=== PATIENT | female | born 1960 | race Two or more races ===

== ENCOUNTER 2017-05-23 22:03 | Inpatient (IN) | payer OTHER ==
[2017-05-23] MEDS ORDERED: ONDANSETRON 4 MG/2 ML VIAL IVP ONE (22:33)
[2017-05-23] MEDS ORDERED: KETOROLAC 30 MG/1 ML SDV IVP ONE (22:33)
[2017-05-23] MEDS ORDERED: NS 1,000 ML IV ONE (22:33)
--- NOTE | 2017-05-23 22:36 | EDPHY ---
H & P Stated Complaint: n/v, abd pain - Personal History LMP (Females 10-55): Hysterectomy Current Tetanus/Diphtheria Vaccine: Yes Current Tetanus Diphtheria and Acellular Pertussis (TDAP): Yes - Medical/Surgical History Hx Asthma: No Hx Chronic Respiratory Disease: No Hx Diabetes: No Hx Cardiac Disease: No Hx Renal Disease: No Hx Cirrhosis: No Hx Alcoholism: No Hx HIV/AIDS: No Hx Splenectomy or Spleen Trauma: No Other PMH: hysterectomy, ovarian CA with removal, double mastectomy - Social History Smoking Status: Never smoked Time Seen by Provider: 05/23/17 22:27 HPI/ROS: CHIEF COMPLAINT: Abdominal pain, nausea, vomiting x 24 hours HISTORY OF PRESENT ILLNESS: 56-year-old female in the ER via private vehicle with her son. The patient is visiting from [facility]. She describes 24 hours of periumbilical abdominal pain, nausea, vomiting. No bowel movement in over 24 hours. Not passing flatness. Normal urinary habits. No history of similar. She has history of ovarian cancer with total hysterectomy, appendectomy and bilateral mastectomy performed several years ago. REVIEW OF SYSTEMS: A ten point review of systems was performed and is negative with the exception of the items mentioned in the HPI PAST MEDICAL & SURGICAL HISTORY: Total hysterectomy. Appendectomy. Bilateral mastectomy SOCIAL HISTORY: visiting from [facility] PHYSICAL EXAM (Prior to examination, patient consented to physical exam, hands were washed and my usual and customary physical exam procedures followed) 1) GENERAL: Well-developed, well-nourished, alert and oriented. Appears uncomfortable 2) HEAD: Normocephalic, atraumatic 3) HEENT: Pupils equal, round, reactive to light bilaterally. Sclera anicteric. Nasopharynx, oropharynx, clear, no lesions. Dry mucous membranes 4) NECK: Full range of motion, no meningeal signs. 5) LUNGS: Clear auscultation bilaterally, no wheezes, no rhonchi, no retractions. 6) HEART: Regular rate and rhythm, no murmur, no heave, no gallop. 7) ABDOMEN: Guarding abdomen, tender to palpation periumbilical region. , negative Ramos's, negative peritoneal sign, 8) MUSCULOSKELETAL: Moving all extremities, no focal areas of tenderness, no obvious trauma. No peripheral edema or discoloration. 9) BACK: No CVA tenderness, no midline vertebral tenderness, no fluctuance, no step-off, no obvious trauma, no visual or palpable abnormality. 10) SKIN: No rash, no petechiae. 11) Psychiatric: Patient is oriented X 3, there is no agitation. DIFFERENTIAL DIAGNOSIS: in no particular order including but not limited to bowel obstruction, gastroenteritis, cholecystitis, mesenteric ischemia (Lo Osman) Constitutional: Initial Vital Signs Temperature (C) 37.3 C 05/23/17 22:17 Heart Rate 84 05/23/17 22:17 Respiratory Rate 16 05/23/17 22:17 Blood Pressure 121/90 H 05/23/17 22:17 O2 Sat (%) 96 05/23/17 22:17 O2 Delivery Mode Room Air Allergies/Adverse Reactions: No Known Allergies Allergy (Unverified 05/23/17 22:16) Home Medications: Medication Instructions Recorded Quetiapine Fumarate 05/23/17 Medical Decision Making - Diagnostics Imaging: Discussed imaging studies w/ sheet metal work furnace installer Radiologist - Diagnostics Imaging Results: Imaging Impressions Abdomen CT 05/23/17 23:34 Impression: 1. Findings consistent with small bowel obstruction with transition zone identified in the distal ileum. 2. See above report for additional findings. Results called and discussed with Lo Osman on 05/24/2017 at 0:33 ED Course/Re-evaluation: 12:34 a.m.: Discussed the imaging results with Dr. Harris and with the patient. She is feeling improvement in symptoms at this time. Plan will be admission to surgery for small-bowel obstruction. 1257 am: Phone consultation with Dr. Jefry Villela will admit patient. NG tube will be placed. (Lo Osman) PHYSICIAN DOCUMENTATION: The patient was evaluated and managed by the Physician Metal Buffer. My co- signature indicates that I have reviewed this chart and I agree with the findings and plan of care as documented. I am the secondary supervising physician. (Carolyn Harris) - Data Points Laboratory Results: Laboratory Results 05/23/17 22:40 05/23/17 22:40 05/23/17 05/23/17 05/23/17 22:40 22:40 22:39 WBC 13.15 10^3/uL H 10^3/uL (3.80-9.50) RBC 5.01 10^6/uL 10^6/uL (4.18-5.33) Hgb 15.4 g/dL g/dL (12.6-16.3) POC Hgb 17.0 gm/dL H gm/dL (12.6-16.3) Hct 44.1 % % (38.0-47.0) POC Hct 50 % H % (38-47) MCV 88.0 fL fL (81.5-99.8) MCH 30.7 pg pg (27.9-34.1) MCHC 34.9 g/dL g/dL (32.4-36.7) RDW 13.5 % % (11.5-15.2) Plt Count 459 10^3/uL H 10^3/uL (150-400) MPV 9.2 fL fL (8.7-11.7) Neut % (Auto) 91.0 % H % (39.3-74.2) Lymph % (Auto) 6.5 % L % (15.0-45.0) [place] % (Auto) 2.0 % L % (4.5-13.0) Eos % (Auto) 0.0 % L % (0.6-7.6) Baso % (Auto) 0.2 % L % (0.3-1.7) Nucleat RBC Rel Count 0.0 % % (0.0-0.2) Absolute Neuts (auto) 11.97 10^3/uL H 10^3/uL (1.70-6.50) Absolute Lymphs (auto) 0.86 10^3/uL L 10^3/uL (1.00-3.00) Absolute Monos (auto) 0.26 10^3/uL L 10^3/uL (0.30-0.80) Absolute Eos (auto) 0.00 10^3/uL L 10^3/uL (0.03-0.40) Absolute Basos (auto) 0.02 10^3/uL 10^3/uL (0.02-0.10) Absolute Nucleated RBC 0.00 10^3/uL 10^3/uL (0-0.01) Immature Gran % 0.3 % % (0.0-1.1) Immature Gran # 0.04 10^3/uL 10^3/uL (0.00-0.10) POC Sodium 140 mEq/L mEq/L (134-144) Sodium 139 mEq/L mEq/L (134-144) POC Potassium 3.7 mEq/L mEq/L (3.3-5.0) Potassium 3.9 mEq/L mEq/L (3.5-5.2) POC Chloride 100 mEq/L mEq/L (97-110) Chloride 103 mEq/L mEq/L (97-110) Carbon Dioxide 23 mEq/l mEq/l (22-31) Anion Gap 13 mEq/L mEq/L (8-16) POC BUN 13 mg/dL mg/dL (7-23) BUN 13 mg/dL mg/dL (7-23) Creatinine 0.7 mg/dL mg/dL (0.6-1.0) POC Creatinine 0.7 mg/dL mg/dL (0.6-1.0) Estimated GFR > 60 Glucose 131 mg/dL H mg/dL (70-100) POC Glucose 137 mg/dL H mg/dL (70-100) Calcium 10.1 mg/dL mg/dL (8.5-10.4) Total Bilirubin 0.9 mg/dL mg/dL (0.1-1.4) Conjugated Bilirubin 0.3 mg/dL mg/dL (0.0-0.5) Unconjugated Bilirubin 0.6 mg/dL mg/dL (0.0-1.1) AST 21 IU/L IU/L (14-46) ALT 36 IU/L IU/L (9-52) Alkaline Phosphatase 68 IU/L IU/L (38-126) Total Protein 7.8 g/dL g/dL (6.3-8.2) Albumin 4.6 g/dL g/dL (3.5-5.0) Lipase 88.0 IU/L IU/L (23-300) Medications Given: Discontinued Medications Sodium Chloride (Ns) 1,000 mls @ 0 mls/hr IV ONCE ONE PRN Reason: Wide Open Stop: 05/23/17 22:34 Last Admin: 05/23/17 22:41 Dose: 1,000 mls Ketorolac Tromethamine (Toradol) 30 mg IVP EDNOW ONE Stop: 05/23/17 22:34 Last Admin: 05/23/17 22:57 Dose: 30 mg Ondansetron HCl (Zofran) 4 mg IVP EDNOW ONE Stop: 05/23/17 22:34 Last Admin: 05/23/17 22:56 Dose: 4 mg Point of Care Test Results: 05/23/17 22:39 POC Sodium 140 POC Potassium 3.7 POC Chloride 100 POC BUN 13 POC Creatinine 0.7 POC Glucose 137 H Departure - Departure Disposition: [facility] Acute Clinical Impression: Small bowel obstruction Condition: Fair
[2017-05-23 22:51] LABS: % IMMATURE GRANULYOCYTES 0.3 % (0.0-1.1); ABSOLUTE IMMATURE GRANULOCYTES 0.04 10^3/uL (0.00-0.10); ADD DIFF? NO; ADD MORPH? NO; ADD SCAN? NO; ATYPICAL LYMPHOCYTE FLAG 0 (0-99); FRAGMENT RBC FLAG 0 (0-99); HEMATOCRIT 44.1 % (38.0-47.0); HEMOGLOBIN 15.4 g/dL (12.6-16.3); LEFT SHIFT FLG 0 (0-99); LIPEMIA HEMOLYSIS FLAG 90 (0-99); MEAN CELL HEMOGLOBIN 30.7 pg (27.9-34.1); MEAN CELL HEMOGLOBIN CONCENTR. 34.9 g/dL (32.4-36.7); MEAN PLATELET VOLUME 9.2 fL (8.7-11.7); PLATELET CLUMPS FLAG 10 (0-99); PLATELET COUNT 459 10^3/uL (150-400); RED BLOOD CELL COUNT 5.01 10^6/uL (4.18-5.33); RED CELL DISTRIBUTION WIDTH 13.5 % (11.5-15.2)
[2017-05-23 23:08] LABS: ALANINE AMINOTRANSFERASE 36 IU/L (9-52); ALBUMIN 4.6 g/dL (3.5-5.0); ALKALINE PHOSPHATASE 68 IU/L (38-126); ANION GAP 13 mEq/L (8-16); ASPARTATE AMINOTRANSFERASE 21 IU/L (14-46); BILIRUBIN,TOTAL 0.9 mg/dL (0.1-1.4); BILIRUBIN-CONJUGATED 0.3 mg/dL (0.0-0.5); BILIRUBIN-UNCONJUGATED 0.6 mg/dL (0.0-1.1); CALCIUM 10.1 mg/dL (8.5-10.4); CARBON DIOXIDE 23 mEq/l (22-31); CHLORIDE 103 mEq/L (97-110); CREATININE 0.7 mg/dL (0.6-1.0); GLOMERULAR FILTRATION RATE > 60; GLUCOSE 131 mg/dL (70-100); POTASSIUM 3.9 mEq/L (3.5-5.2); SODIUM 139 mEq/L (134-144); TOTAL PROTEIN 7.8 g/dL (6.3-8.2)
[2017-05-23] MEDS ORDERED: IOPAMIDOL (ISOVUE-300) 100 ML BTL ONE (23:36)
[2017-05-24] MEDS: D5W 1/2 NS W/ 20 KCl/L 1,000 ML IV SCH ×3 (02:50→18:28)
--- NOTE | 2017-05-24 02:54 | SOAPPROG ---
SOAP Progress Note Assessment/Plan: Assessment: 56 FEMALE ADMITTED WITH SMALL-BOWEL OBSTRUCTION. PAST HISTORY OF OVARIAN CANCER WITH KEREN AND BSO 18 YEARS. LAST BM 24 HOURS AGO. NO PRIOR SBO ABDOMEN IS SOFT NONTENDER BUT SLIGHTLY DISTENDED WITH POSITIVE BOWEL SOUNDS NG IS NOT DRAINING MUCH Plan: CONTINUE IVS JENNA MENON NG SUCTION/SURGERY IF NOT IMPROVING IN 48-72 HOURS 05/24/17 02:52 Objective: Vital Signs Temp Pulse Resp BP Pulse Ox 37.1 C 81 18 111/71 95 05/24/17 01:46 05/24/17 01:46 05/24/17 01:46 05/24/17 01:46 05/24/17 01:46 05/22/17 05/23/17 05/24/17 05:59 05:59 05:59 Intake Total 1000 Balance 1000 ICD10 Worksheet Patient Problems: Problems Problem Status Onset Small bowel obstruction Acute
--- NOTE | 2017-05-24 04:45 | GHP ---
[f rep st] PREOP HISTORY AND PHYSICAL DATE OF ADMISSION: 05/24/2017 HISTORY OF PRESENT ILLNESS: The patient is a 56-year-old female visiting from [facility], who presen ts with nausea and vomiting for 24 hours and abdominal pain. CT scan in the ER was consistent with small bowel obstruction. She has a history of ovarian cancer with resection 18 years ago. She has had a tummy tuck operation 3 years ago but no other major intraabdominal problems and no evidence of any recurrence of her ovarian cancer. Her last bowel movement was over 24 hours ago. She has also had an appendectomy and bilateral mastectomies. She is admitted at this time for observation, NG s uction and surgery if needed. PAST HISTORY: Includes: 1. Ovarian cancer with KEREN and BSO. 2. Appendectomy. 3. Bilateral mastectomies with reconstruction. 4. Tummy tuck operation. REVIEW OF SYSTEMS: Negative for any other major medical problems or troubles except for that includ ed in the History Of Present Illness. ALLERGIES: None. MEDICATIONS: Quetiapine fumarate. PHYSICAL EXAMINATION: GENERAL: Reveals an alert, cooperative, 56-year-old female in no acute distr ess. HEAD and NECK: Reveals no icterus or adenopathy. No thyromegaly or oral lesions. Pupils are normal. Neck supple, nontender. CHEST: Clear and equal breath sounds. CARDIAC: Regular rhythm without murmurs. ABDOMEN: Soft, slightly distended, nontender. She has a Pfannenstiel-type lower abdominal incision and positive bowel sounds. EXTREMITIES: Reveal full range of motion, full dista l pulses. NEUROLOGIC: Physiologic. IMPRESSION: Small bowel obstruction. PLAN: Admit for observation, NG suction, IV fluids, surgery if indicated. /[id number]/MODL
[2017-05-24] MEDS: KETOROLAC 15 MG/1 ML SDV IVP SCH ×4 (04:53→23:27)
[2017-05-24] MEDS: HYDROmorphONE/DILAUDID 1 MG/ML SYR IVP PRN ×2 (08:18→15:44)
--- NOTE | 2017-05-24 10:07 | SOAPPROG ---
SOAP Progress Note Assessment/Plan: Assessment: 56 FEMALE ADMITTED WITH SMALL-BOWEL OBSTRUCTION. PAST HISTORY OF OVARIAN CANCER WITH KEREN AND BSO 18 YEARS. LAST BM 24 HOURS AGO. NO PRIOR SBO ABDOMEN IS SOFT NONTENDER BUT SLIGHTLY DISTENDED WITH POSITIVE BOWEL SOUNDS NG IS NOT DRAINING MUCH Plan: CONTINUE IVS MB LYNSEY NG SUCTION/SURGERY IF NOT IMPROVING IN 48-72 HOURS 05/24/17 02:52 05/24/17 10:06 SOME IMPROVEMENT THIS MORNING/ABDOMEN SOFTER/SMALL AMOUNT OF FLATUS/TO A SHOWS PERSISTENT PARTIAL SBO/NG DRAINAGE THE MINIMAL BUT IT TUBE NOT DOWN FAR ENOUGH MAY BE ABLE TO CLAMP TUBE LATER AND TRY LIQUIDS IF MORE FLATUS IS FORTHCOMING Objective: Vital Signs Temp Pulse Resp BP Pulse Ox 37.1 C 85 16 132/81 H 92 05/24/17 08:13 05/24/17 08:13 05/24/17 08:13 05/24/17 08:13 05/24/17 08:13 05/23/17 05/24/17 05/25/17 05:59 05:59 05:59 Intake Total 1000 Output Total 400 Balance 600 ICD10 Worksheet Patient Problems: Problems Problem Status Onset Small bowel obstruction Acute
[2017-05-24] MEDS: ONDANSETRON 4 MG/2 ML VIAL IVP PRN ×2 (15:43→20:40)
[2017-05-24] MEDS: PROMETHAZINE HCL 25 MG/ML INJ IV PRN (22:20)
[2017-05-25] MEDS: ONDANSETRON 4 MG/2 ML VIAL IVP PRN (02:31)
[2017-05-25] MEDS: D5W 1/2 NS W/ 20 KCl/L 1,000 ML IV SCH ×2 (02:33→10:04)
[2017-05-25] MEDS: PROMETHAZINE HCL 25 MG/ML INJ IV PRN ×3 (03:40→23:12)
[2017-05-25] MEDS: KETOROLAC 15 MG/1 ML SDV IVP SCH ×4 (05:16→23:12)
--- NOTE | 2017-05-25 08:08 | SOAPPROG ---
SOAP Progress Note Assessment/Plan: Assessment: 56 FEMALE ADMITTED WITH SMALL-BOWEL OBSTRUCTION. PAST HISTORY OF OVARIAN CANCER WITH KEREN AND BSO 18 YEARS. LAST BM 24 HOURS AGO. NO PRIOR SBO ABDOMEN IS SOFT NONTENDER BUT SLIGHTLY DISTENDED WITH POSITIVE BOWEL SOUNDS NG IS NOT DRAINING MUCH Plan: CONTINUE IVS MB LYNSEY NG SUCTION/SURGERY IF NOT IMPROVING IN 48-72 HOURS 05/24/17 02:52 05/24/17 10:06 SOME IMPROVEMENT THIS MORNING/ABDOMEN SOFTER/SMALL AMOUNT OF FLATUS/TO A SHOWS PERSISTENT PARTIAL SBO/NG DRAINAGE THE MINIMAL BUT IT TUBE NOT DOWN FAR ENOUGH MAY BE ABLE TO CLAMP TUBE LATER AND TRY LIQUIDS IF MORE FLATUS IS FORTHCOMING 05/25/17 08:07 LOTS OF NAUSEA LAST PM/ ABD SOFT/ AFEBRILE/ LARGE NG OUT/ MILDLY DISTENDED/ 2-WAY PENDING/ MAY NEED SURGERY Objective: Vital Signs Temp Pulse Resp BP Pulse Ox 37.2 C 65 14 115/61 92 05/25/17 06:59 05/25/17 06:59 05/25/17 06:59 05/25/17 06:59 05/25/17 06:59 05/24/17 05/25/17 05/26/17 05:59 05:59 05:59 Intake Total 1000 2677 Output Total 400 1160 200 Balance 600 1517 -200 ICD10 Worksheet Patient Problems: Problems Problem Status Onset Small bowel obstruction Acute
[2017-05-25] MEDS: HYDROmorphONE/DILAUDID 1 MG/ML SYR IVP PRN (09:15)
[2017-05-25] MEDS ORDERED: cefOXitin SODIUM 2 GM in D5W 100 ML IV ONE (13:35)
[2017-05-25] MEDS ORDERED: LR 1,000 ML IV ONE (15:32)
--- NOTE | 2017-05-25 15:40 | PDANEPAE ---
ANE History of Present Illness Bowel obstruction ANE Past Medical History - Pulmonary History Hx Oxygen in Use at Home: No Hx Sleep Apnea: No Sleep Apnea Screening Result - Last Documented: Negative - Endocrine History Hx Diabetes: No - Chronic Pain History Chronic Pain: No ANE Patient History - Allergies Allergies/Adverse Reactions: No Known Allergies Allergy (Unverified 05/23/17 22:16) - Home Medications Home Medications: QUEtiapine FUMARATE [Seroquel 25 mg (*)] 25 mg PO BID 05/23/17 [Last Taken Unknown] Estradiol [Estrogel] 1 salazar TP HS 05/24/17 [Last Taken Unknown] Herbals/Supplements -Info Only 1 ea PO DAILY 05/24/17 [Last Taken Unknown] Multivitamins [Multivitamin (*)] 1 each PO DAILY 05/24/17 [Last Taken Unknown] - NPO status NPO Since - Liquids (Date): 05/22/17 NPO Since - Solids (Date): 05/22/17 - Smoking Hx Smoking Status: Never smoked ANE Labs/Vital Signs - Labs Result Diagrams: 05/23/17 22:40 05/23/17 22:40 - Vital Signs Blood Pressure: 122/61 Heart Rate: 65 Respiratory Rate: 14 O2 Sat (%): 92 Height: 159 cm Weight: 60 kg ANE Physical Exam - Airway Neck exam: FROM Mouth exam: normal dental/mouth exam (NG in place) - Pulmonary Pulmonary: no respiratory distress - Cardiovascular Cardiovascular: regular rate and rhythym - ASA Status ASA Status: II ANE Anesthesia Plan Anesthesia Plan: general endotracheal anesthesia
[2017-05-25] MEDS ORDERED: fentaNYL 100 MCG/2 ML INJ ONE ×3 (15:48→18:15)
[2017-05-25] MEDS ORDERED: PROPOFOL 200 MG/20 ML VIAL ONE ×2 (15:48→16:41)
[2017-05-25] MEDS ORDERED: LIDOCAINE 2% 5 ML SDV ONE (15:50)
[2017-05-25] MEDS ORDERED: HEPARIN 1000 UNIT/1 ML MDV ONE (15:50)
[2017-05-25] MEDS ORDERED: ROCURONIUM 50 MG/5 ML VIAL ONE (15:50)
[2017-05-25] MEDS ORDERED: BUPIVACAINE 0.5% 30 ML SDV ONE (15:50)
[2017-05-25] MEDS ORDERED: DEXAMETHASONE 4 MG/ML VIAL ONE ×2 (15:50)
[2017-05-25] MEDS ORDERED: ceFAZolin 1 GM/5 ML SYR ONE (15:50)
[2017-05-25] MEDS ORDERED: MIDAZOLAM 2 MG/2 ML VIAL IVP ONE (15:53)
[2017-05-25] MEDS ORDERED: SUGAMMADEX SODIUM 200 MG/2 ML VIAL IVP ONE (16:30)
[2017-05-25] MEDS ORDERED: HYDROmorphONE/DILAUDID 2 MG/ML INJ ONE (17:00)
[2017-05-25] MEDS ORDERED: HYDROmorphONE/DILAUDID 1 MG/ML SYR IVP PRN ×2 (17:01→17:39)
[2017-05-25] MEDS ORDERED: PROMETHAZINE HCL 25 MG/ML INJ IVP PRN (17:01)
[2017-05-25] MEDS ORDERED: ONDANSETRON 4 MG/2 ML VIAL IVP PRN ×2 (17:01→17:39)
[2017-05-25] MEDS ORDERED: NALOXONE HCL 0.4 MG/ML INJ IVP PRN ×2 (17:01→18:08)
--- NOTE | 2017-05-25 17:37 | POSTOPPROG ---
Post Op Note Date of Operation: 05/25/17 Surgeon: Jefry Villela Race Car Driver: DALLIN Anesthesiologist: MICHEAL Anesthesia: GET(General Endotracheal) Pre-op Diagnosis: SBO Post-op Diagnosis: SAME Indication: CONTINUED SBO Procedure: LAPAROSCOPY, LAPAROTOMY AND LYSIS ADHESIONS FOR ACUTE SBO Findings: DIFFUSE ADHESIONS IN PELVIS BUT ONE FIBROUS BAND CAUSING SBO Inf/Abcess present in the surg proc area at time of surgery?: No Depth: Organ Space EBL: Minimal Complications: 0 Specimen(s): 0
--- NOTE | 2017-05-25 17:44 | POSTANESTH ---
Post Anesthetic Evaluation Cardiovascular Status: Normal, Stable Respiratory Status: Normal, Stable Level of Consciousness/Mental Status: Can Participate in Eval Pain Control: Adequate, Prn Tx Ordered Nausea/Vomiting Control: Adequate, Prn Tx Ordered Complications Possibly Related to Anesthesia: None Noted
[2017-05-25] MEDS ORDERED: KETOROLAC 15 MG/1 ML SDV IVP SCH (18:00)
[2017-05-25] MEDS: fentaNYL 100 MCG/2 ML INJ IVP PRN ×4 (18:14→18:39)
[2017-05-25] MEDS: HYDROmorphONE/DILAUDID 6 MG/30 ML PCA IV PRN (18:50)
[2017-05-25] MEDS: cefOXitin SODIUM 1 GM in D5W 50 ML IV SCH (21:24)
[2017-05-26] MEDS: cefOXitin SODIUM 1 GM in D5W 50 ML IV SCH ×3 (04:36→16:37)
[2017-05-26] MEDS: KETOROLAC 15 MG/1 ML SDV IVP SCH ×3 (05:31→18:12)
[2017-05-26] MEDS: D5W 1/2 NS W/ 20 KCl/L 1,000 ML IV SCH ×3 (05:31→23:40)
--- NOTE | 2017-05-26 08:28 | SOAPPROG ---
SOAP Progress Note Assessment/Plan: Assessment: 56 FEMALE ADMITTED WITH SMALL-BOWEL OBSTRUCTION. PAST HISTORY OF OVARIAN CANCER WITH KEREN AND BSO 18 YEARS. LAST BM 24 HOURS AGO. NO PRIOR SBO ABDOMEN IS SOFT NONTENDER BUT SLIGHTLY DISTENDED WITH POSITIVE BOWEL SOUNDS NG IS NOT DRAINING MUCH Plan: CONTINUE IVS MB LYNSEY NG SUCTION/SURGERY IF NOT IMPROVING IN 48-72 HOURS 05/24/17 02:52 05/24/17 10:06 SOME IMPROVEMENT THIS MORNING/ABDOMEN SOFTER/SMALL AMOUNT OF FLATUS/TO A SHOWS PERSISTENT PARTIAL SBO/NG DRAINAGE THE MINIMAL BUT IT TUBE NOT DOWN FAR ENOUGH MAY BE ABLE TO CLAMP TUBE LATER AND TRY LIQUIDS IF MORE FLATUS IS FORTHCOMING 05/25/17 08:07 LOTS OF NAUSEA LAST PM/ ABD SOFT/ AFEBRILE/ LARGE NG OUT/ MILDLY DISTENDED/ 2-WAY PENDING/ MAY NEED SURGERY 05/26/17 08:27 doing ok/ uo ok/ wound cdi/ abd soft, with bs/ afebrile/ still some ng drainage Objective: Vital Signs Temp Pulse Resp BP Pulse Ox 37.0 C 87 17 128/71 H 95 05/26/17 08:00 05/26/17 08:00 05/26/17 08:00 05/26/17 08:00 05/26/17 08:00 05/25/17 05/26/17 05/27/17 05:59 05:59 05:59 Intake Total 1365 Output Total 700 Balance 665 ICD10 Worksheet Patient Problems: Problems Problem Status Onset Small bowel obstruction Acute
[2017-05-26] MEDS: ZOLPIDEM TARTRATE 5 MG TAB PO PRN (22:32)
[2017-05-27] MEDS: KETOROLAC 15 MG/1 ML SDV IVP SCH ×4 (00:40→17:40)
[2017-05-27] MEDS: HYDROmorphONE/DILAUDID 6 MG/30 ML PCA IV PRN (02:16)
[2017-05-27] MEDS: D5W 1/2 NS W/ 20 KCl/L 1,000 ML IV SCH ×2 (07:47→16:30)
--- NOTE | 2017-05-27 11:14 | SOAPPROG ---
SOAP Progress Note Assessment/Plan: Assessment/Plan: 56 Y F s/p laparotomy and RONY for SBO, POD#2. Clamp NGT. Start clears. Remove NGT later today if does well. Seen while walking in hallway with certified optician. S: passing gas. Walking well. Pain controlled. No more N/V. O: alert, nad, smiling, walking well, seen in hallway during walk with aide 05/27/17 11:12 Objective: Vital Signs Temp Pulse Resp BP Pulse Ox 36.8 C 93 12 109/87 H 93 05/27/17 10:00 05/27/17 10:00 05/27/17 10:00 05/27/17 10:00 05/27/17 10:00 05/26/17 05/27/17 05/28/17 05:59 05:59 05:59 Intake Total 1365 1452 Output Total 700 2600 200 Balance 665 -1148 -200 ICD10 Worksheet Patient Problems: Problems Problem Status Onset Small bowel obstruction Acute
[2017-05-27 14:03] VITALS: RESP 16
[2017-05-27] MEDS ORDERED: ACETAMINOPHEN 325 MG TAB ONE (18:35)
[2017-05-27] MEDS: ACETAMINOPHEN 325 MG TAB PO PRN (18:39)
[2017-05-27] MEDS: ZOLPIDEM TARTRATE 5 MG TAB PO PRN (21:44)
[2017-05-28] MEDS: D5W 1/2 NS W/ 20 KCl/L 1,000 ML IV SCH (00:55)
[2017-05-28] MEDS: KETOROLAC 15 MG/1 ML SDV IVP SCH ×4 (00:55→17:35)
[2017-05-28 09:43] LABS: % IMMATURE GRANULYOCYTES 0.5 % (0.0-1.1); ABSOLUTE IMMATURE GRANULOCYTES 0.05 10^3/uL (0.00-0.10); ADD DIFF? NO; ADD MORPH? NO; ADD SCAN? NO; ATYPICAL LYMPHOCYTE FLAG 0 (0-99); FRAGMENT RBC FLAG 0 (0-99); HEMATOCRIT 37.6 % (38.0-47.0); HEMOGLOBIN 12.3 g/dL (12.6-16.3); LEFT SHIFT FLG 0 (0-99); LIPEMIA HEMOLYSIS FLAG 80 (0-99); MEAN CELL HEMOGLOBIN 30.4 pg (27.9-34.1); MEAN CELL HEMOGLOBIN CONCENTR. 32.7 g/dL (32.4-36.7); MEAN CELL VOLUME 92.8 fL (81.5-99.8); MEAN PLATELET VOLUME 9.1 fL (8.7-11.7); PLATELET CLUMPS FLAG 0 (0-99); PLATELET COUNT 331 10^3/uL (150-400); RED BLOOD CELL COUNT 4.05 10^6/uL (4.18-5.33)
[2017-05-28 10:03] LABS: ANION GAP 12 mEq/L (8-16); CALCIUM 8.7 mg/dL (8.5-10.4); CARBON DIOXIDE 21 mEq/l (22-31); CHLORIDE 103 mEq/L (97-110); CREATININE 0.7 mg/dL (0.6-1.0); GLOMERULAR FILTRATION RATE > 60; GLUCOSE 101 mg/dL (70-100); POTASSIUM 4.1 mEq/L (3.5-5.2); SODIUM 136 mEq/L (134-144)
--- NOTE | 2017-05-28 12:46 | SOAPPROG ---
SOAP Progress Note Assessment/Plan: Assessment: s/p RONY for small bowel obstruction tolerating clears Will advance diet and likely home in am S: Feeling improved. No nausea or vomiting O: Soft and bowel sounds present Sitting up in chair Lungs ctab regular rate Plan: 05/28/17 12:45 Objective: Vital Signs Temp Pulse Resp BP Pulse Ox 37.0 C 80 16 131/70 H 91 L 05/28/17 08:00 05/28/17 08:00 05/28/17 08:00 05/28/17 08:00 05/28/17 08:00 Laboratory Results 05/28/17 09:30 05/28/17 09:30 05/27/17 05/28/17 05/29/17 05:59 05:59 05:59 Intake Total 1452 1500 1406 Output Total 2600 2100 Balance -1148 -600 1406 ICD10 Worksheet Patient Problems: Problems Problem Status Onset Small bowel obstruction Acute
[2017-05-28] MEDS ORDERED: HYDROCODONE/APAP 5/325 TAB PO PRN (13:13)
[2017-05-28] MEDS: ONDANSETRON 4 MG/2 ML VIAL IVP PRN (17:34)
[2017-05-28] MEDS: ACETAMINOPHEN 325 MG TAB PO PRN (20:10)
[2017-05-28] MEDS: ZOLPIDEM TARTRATE 5 MG TAB PO PRN (22:00)
[2017-05-29 09:00] VITALS: TEMP 98.6
[2017-05-29 12:12] VITALS: BP 127/64; PULSE 76; O2SAT 97
--- NOTE | 2017-05-29 12:23 | SOAPPROG ---
SOAP Progress Note Assessment/Plan: Assessment: s/p RONY for small bowel obstruction tolerating clears some intermittent bloating but tolerating diet and passing flatus and bm Dc home F/U dc whaley in 1-2 weeks S: Feeling improved. No nausea or vomiting O: Soft, some distension, and bowel sounds present Sitting up in bed Lungs ctab regular rate Plan: 05/28/17 12:45 05/29/17 12:22 Objective: Vital Signs Temp Pulse Resp BP Pulse Ox 37.0 C 76 16 127/64 H 97 05/29/17 12:00 05/29/17 12:00 05/29/17 12:00 05/29/17 12:00 05/29/17 12:00 Laboratory Results 05/28/17 09:30 05/28/17 09:30 05/28/17 05/29/17 05/30/17 05:59 05:59 05:59 Intake Total 1500 2406 Output Total 2100 700 Balance -600 1706 ICD10 Worksheet Patient Problems: Problems Problem Status Onset Small bowel obstruction Acute
--- NOTE | 2017-06-02 07:01 | GOP ---
[f rep st] OPERATIVE REPORT DATE OF OPERATION: 05/25/2017 SURGEON: Jefry Villela MD CHANNEL LAYER: TODD Barajas. ANESTHESIOLOGIST: Dr. Kearns. PREOPERATIVE DIAGNOSIS: Small bowel obstruction. POSTOPERATIVE DIAGNOSIS: Small bowel obstruction. PROCEDURE PERFORMED: Laparoscopy and laparotomy with adhesiolysis. FINDINGS: The patient was found to have a true small bowel obstruction with a definite transition p oint with a fibrous band in the pelvis causing a complete small bowel obstruction. There were sever al other adhesions as well, but they were not causing troubles. DESCRIPTION OF PROCEDURE: The patient was taken to the room where she received satisfact ory general endotracheal anesthesia by Dr. Kearns. She was placed in supine position, prepped and draped in the usual sterile fashion. An incision was made in the right upper quadrant, a Veres s needle was inserted. Pneumoperitoneum was established. Trocar was introduced. Adequate visualiz ation was obtained. However, visibility was quite poor. Could clearly see that there was a dilated bowel and decompressed bowel, but following that down to the pelvis was quite difficult. Elected a fter a while to proceed with open procedure. Pneumoperitoneum was released. The midline lower abdo ronald incision was made and carried through the linea alba. A wound protector was then used and the wound was explored. A tight fibrous band was identified down in the pelvis causing the acute bowel obstruction. This was divided with electrocautery and released the small bowel entrapped by this b and. Small bowel was then run in its entirety. Multiple other flimsy adhesions were taken down. T hey were not causing any active obstruction or other symptoms. Bowel was run from the ligament of T jordan to the ileocecal valve with all adhesions being lysed. She tolerated procedure quite well. T he bowel was replaced in the abdominal cavity and the abdomen was then closed in layers using runnin g #1 PDS for the linea alba and 3-0 Vicryl for the subcu and 4-0 Monocryl subcuticular stitch for th e skin. All layers infiltrated with 0.5% Marcaine. Some topical thrombin was placed in the surgica l site as well. Trocar sites were also closed with 4-0 Monocryl subcuticular sutures. She tolerate d the procedure well, taken to the recovery room in good condition. There were no complications. B lood loss was minimal. /[id number]/MODL
== END 2017-05-29 12:55 | disposition home or self-care (01) | DRG 337 ==
LOC: F3E 05-24 01:37 → OBSVTOIN 05-25 10:30
PROVIDERS: ADMIT Surgery; ATTEND Surgery
PROC: 0DN80ZZ Release Small Intestine, Open Approach (ICD-10-PCS; principal; 2017-05-25 16:15)
PROC: 0WJG4ZZ Inspection of Peritoneal Cavity, Percutaneous Endoscopic Approach (ICD-10-PCS; principal; 2017-05-25 16:15)
PROC: 0D9670Z Drainage of Stomach with Drainage Device, Via Natural or Artificial Opening (ICD-10-PCS; principal; 2017-05-25 16:15)
DX: K56.5 Intestinal adhesions [bands] with obstruction (postinfection) (principal); Z85.43 Personal history of malignant neoplasm of ovary; Z90.710 Acquired absence of both cervix and uterus; Z90.722 Acquired absence of ovaries, bilateral; Z53.31 Laparoscopic surgical procedure converted to open procedure; Z90.13 Acquired absence of bilateral breasts and nipples
CPT/HCPCS: 82947-QW; 86304-90; 96374; C1765; J0694; J0697; J1100; J1170; J1885; J2250; J2405; J2550; J2704; J3010; Q9967

== ENCOUNTER → 2017-06-06 | Outpatient (CLI) | payer OTHER | LOC: FLAB 12:26 → EDSTATUS 12:27 → FIMAGING 12:28 | PROVIDERS: ATTEND Surgery | DX: K59.00 Constipation, unspecified (principal) ==